=== PATIENT | male | born 1995 | race Caucasian/White ===

== ENCOUNTER 2017-08-17 15:34 | Outpatient (CLI) | payer OTHER ==
[2017-08-17 16:35] LABS: Hemoglobin 14.9 g/dL (14.0-18.0); Mean Corpuscular HGB CONC 35.6 g/dL (32.0-36.0); Mean Corpuscular Hemoglobin 33.2 pg (27.0-31.0); Mean Corpuscular Volume 93.1 fl (80.0-94.0); Mean Platelet Volume 6.7 fL (7.4-10.4); Platelet Count 232 thou/uL (130-400); RBC Distribution Width 11.2 % (11.5-14.5); Red Blood Cell (RBC) Count 4.48 mill/uL (4.70-6.10); White Blood Cell (WBC) Count 5.7 thou/uL (4.8-10.8)
== END 2017-08-17 15:35 | disposition home or self-care (01) ==
LOC: LABBT 15:34
PROVIDERS: ATTEND Orthopaedic Surgery
DX: Z01.812 Encounter for preprocedural laboratory examination (principal); S83.231D Complex tear of medial meniscus, current injury, right knee, subsequent encounter; S83.271D Complex tear of lateral meniscus, current injury, right knee, subsequent encounter; S83.511D Sprain of anterior cruciate ligament of right knee, subsequent encounter
CPT/HCPCS: 85027

== ENCOUNTER → 2017-08-24 | Day surgery (SDC) | payer OTHER ==
[2017-08-17 15:55] VITALS: BMI 30.8
[~2017-08-24] MED LIST: Bupivacaine HCl 0.5%/Epinephrine 1:200,000/PF 30 ml Vial ONE; Bupivacaine/Epinephrine 0.25% 30 ML VIAL ONE; CEFAZOLIN/Water 2 GM/20 ML SYRINGE ONE; Dexamethasone 20 MG/5 ML VIAL ONE; Fentanyl 100 MCG/2 ML VIAL IV PRN; Fentanyl 100 MCG/2 ML VIAL ONE; HYDROcodone/Acetaminophen 5/325 mg Tablet ONE; HYDROcodone/Acetaminophen 5/325 mg Tablet PO PRN; Ketorolac Tromethamine 30 MG/ML VIAL IVP PRN; Ketorolac Tromethamine 30 MG/ML VIAL ONE; Lidocaine 1% PF 5 ML VIAL ONE; Midazolam HCl 2 mg/2 ml Vial ONE; Morphine 4 MG/ML VIAL ONE; Neomycin-Polymyxin 1 ML AMP ONE; Ondansetron HCl/PF 4 MG/2 ML Vial IVP PRN; Ondansetron HCl/PF 4 MG/2 ML Vial ONE; PROPOFOL 200 MG/20 ML VIAL ONE; Promethazine HCl 25 MG/ML VIAL IM PRN; Ropivacaine 0.2% HCl/PF (40 MG/20 ML VIAL) ONE; Ropivacaine 0.5% HCl/PF (150 MG/30 ML VIAL) ONE; Ropivacaine HCl/PF 1,100 MG in Premix Bag 1 BAG NERVE BLCK SCH; Zolpidem Tartrate 5 MG TAB PO PRN; traMADol HCl 50 MG TAB PO PRN
--- NOTE | 2017-08-24 15:53 | OP ---
DATE OF OPERATION: 08/24/2017 PREOPERATIVE DIAGNOSES: 1. Tear of a reconstructed anterior cruciate ligament of the right knee. 2. Complex tear involving the posterior horn of the lateral meniscus of the right knee. 3. Longitudinal tear in the posterior horn of the medial meniscus of the right knee. POSTOPERATIVE DIAGNOSES: 1. Tear of a reconstructed anterior cruciate ligament of the right knee. 2. Complex tear involving the posterior horn of the lateral meniscus of the right knee. 3. Longitudinal tear in the posterior horn of the medial meniscus of the right knee. PROCEDURES: Arthroscopy of the right knee with partial lateral meniscectomy, medial meniscal repair and revision of anterior cruciate ligament reconstruction using hamstring tendons. SURGEON: Karri Rose M.D. ANESTHESIA: General. TECHNIQUE: The patient was given preoperative IV antibiotics, taken to the operating room, placed in the supine position. Satisfactory general anesthesia was performed. Examination under anesthesia w as performed on the right knee, the patient has had a 3+ anterior Buddy. The knee was very unstabl e, had a positive pivot shift. The right lower extremity was placed in a leg oquendo and was then nano rilely prepped and draped in usual fashion. After exsanguination, the tourniquet was raised to 250 m mHg. Knee was scoped through the usual anterior medial and anterior lateral portals. Upon entering the suprapatellar pouch, the patient had minimal synovitis. Patellofemoral joint was normal and dutta llar rode well in the femoral groove. The intercondylar notch revealed a complete lack of anterior c ruciate ligament. There was a small stump of the reconstructed ligament from the femur and there was a cartilage and bone defect in the mid portion of the tibia where the normal anterior cruciate ligam ent attaches. The posterior cruciate ligament was intact. The lateral compartment had some minor te aring of the anterior horn of the lateral meniscus and a partial lateral meniscectomy was performed u sing the shaver. The posterior horn of the lateral meniscus had complex tearing and a partial latera l meniscectomy was performed there using the shaver and surface ArthroWand. The body was pretty much intact. Articular cartilage over the lateral aspect for the most part was intact, although there wa s some small cartilage defect on the posterior lateral aspect of the lateral femoral condyle and the shaver was used to smooth it. Medial compartment had normal articular cartilage on the femur and tib ia and there was a longitudinal tear involving the posterior horn, which was amenable to repair and i t was repaired using Arthrex SpeedCinch with a 2-0 FiberWire and this provided excellent fixation for that tear. Preparation was then made for the ACL reconstruction. A 1-1/2 inch incision was made ov er the pes anserine and the semitendinosus and gracilis tendons were harvested with a tendon stripper and placed on the back table where nurse prepared the tendon by removing any extra tissue, and muscl e tissue. A #2 FiberWire was then used in a whipstitch on the ends of the two tendons and attention was then turned to the preparation for the tunnels. A tunnel was first made where the ACL normally a ttached on the mid portion of the tibia and the tunnel was measured and was cut to a 7 mm. The angi l attachment for the ACL on the posterior aspect of the lateral femoral condyle was also prepared. A guidepin was placed out through the lateral aspect of the knee and distal thigh. Suture was passed through the 7 mm tunnel on the femur leaving the lateral cortex with just the smaller diameter from jerry original guide pin. Prolene suture was brought through the femoral tunnel and out the lateral asp ect of the distal thigh and then brought through the tibial tunnel. The two tendons that had been fox tured previously were doubled over and brought through the tibial tunnel and then attached into the f emoral tunnel using an Arthrex ACL TightRope making sure that the button contacted well with the late ral aspect of the femur and checked in with a C-arm. The tendons were then held tight in the tibial tunnel and was internally fixed there using a 7-mm BioComposite interference screw. The tendons in t he femoral tunnel were brought even under better tension with the TightRope and this provided excelle nt fixation and excellent stability for the knee. The TightRope sutures were cut below the skin leve l laterally and the other sutures around the tibia were also cut. The joint had been copiously irrig ated during the entire procedure with the arthroscopy and the wounds were closed using 2-0 Vicryl for the incision on the anteromedial aspect of the proximal tibia and then the skin was closed with 3-0 Rapide and the two arthroscopy incisions were closed with 3-0 Rapide. Sterile dressing was applied. Tourniquet was released, and the patient was taken out of the leg oquendo. She was awakened and pierre sferred to recovery room in stable condition. ESTIMATED BLOOD LOSS: 50 mL COMPLICATIONS: None. TOURNIQUET TIME: 130 minutes. DISCHARGE MEDICATIONS: Tramadol 50 mg 1 every 6 hours as needed for pain, #60 with 1 refill, [place] 1 0 one every 6 hours as needed for pain, #50 with no refills. Follow in my office in 1 week.
--- NOTE | 2017-08-24 20:13 | RAD ---
SINGLE VIEW OF THE RIGHT KNEE 08/24/17 COMPARISON: None. HISTORY: ACL repair of the right knee. FINDINGS/IMPRESSION: A single limited fluoroscopic view of the right knee was submitted for interpretation. No degenerativ e changes are seen. There appears to be a tunnel from prior ACL repair. POS: [facility]LAINE
== END ==
LOC: SDC 08:38
PROVIDERS: ATTEND Orthopaedic Surgery
PROC: 0MRN47Z Replacement of Right Knee Bursa and Ligament with Autologous Tissue Substitute, Percutaneous Endoscopic Approach (ICD-10-PCS; principal; 2017-08-24)
PROC: 0SQC4ZZ Repair Right Knee Joint, Percutaneous Endoscopic Approach (ICD-10-PCS; principal; 2017-08-24)
DX: S83.511A Sprain of anterior cruciate ligament of right knee, initial encounter (principal); S83.271A Complex tear of lateral meniscus, current injury, right knee, initial encounter; S83.241A Other tear of medial meniscus, current injury, right knee, initial encounter; Z98.890 Other specified postprocedural states; W19.XXXA Unspecified fall, initial encounter; Y93.67 Activity, basketball
CPT/HCPCS: 76001; 96374; C1713; J0670; J1100; J1885; J2001; J2250; J2270; J2405; J2704; J2795; J3010